=== PATIENT | female | born 1965 | race Caucasian/White ===

== ENCOUNTER 2017-11-10 13:27 | Emergency (ER) | payer OTHER ==
[~2017-11-10] VITALS: Ht 149.9 cm; Wt 68.0 kg
[2017-11-10 14:18] VITALS: BP 127/65
--- NOTE | 2017-11-10 14:21 | NUR ---
Raoul borja in [facility] - 11/10/17 at 1609 by [facility] AT BEDSIDE
--- NOTE | 2017-11-10 14:55 | NUR ---
PT AMBULATE TO BED AT 1455
--- NOTE | 2017-11-10 15:00 | NUR ---
PT C/O LEFT FOOT PAIN S/PMECH TRIP AND FALL YESTERDAY AT HOME. +SWELLING, -DEFORMITY DENIES N/V/D; SKIN IS PINK/WARM/DRY; AAOX4 ; LUNGS CLEAR BL; HR EVEN AND REGULAR; PT DENIES ANY FEVER, CP, SOB, OR COUGH AT THIS TIME; PATIENT STATES PAIN OF 5/10 AT THIS TIME; VSS; PATIENT POSITIONED FOR COMFORT; HOB ELEVATED; BEDRAILS UP X2; BED DOWN. ER MD MADE AWARE OF PT STATUS.
[2017-11-10 15:32] VITALS: BP 127/65
--- NOTE | 2017-11-10 15:32 | NUR ---
Patient discharged with v/s stable. Written and verbal after care instructions given and explained. Patient alert, oriented and verbalized understanding of instructions. Ambulatory with . All questions addressed prior to discharge. ID band removed. Patient advised to follow up with PMD. Rx of IBUPROFEN 600MG given. Patient educated on indication of medication including possible reaction and side effects. Opportunity to ask questions provided and answered.
== END 2017-11-10 15:32 | disposition home or self-care (01) ==
LOC: MED 13:27
DX: S92.355A Nondisplaced fracture of fifth metatarsal bone, left foot, initial encounter for closed fracture (principal); W01.0XXA Fall on same level from slipping, tripping and stumbling without subsequent striking against object, initial encounter; Y93.89 Activity, other specified; Y99.8 Other external cause status; Y92.89 Other specified places as the place of occurrence of the external cause
CPT/HCPCS: 73630; 99284